=== PATIENT | female | born 1965 | race Caucasian/White ===

== ENCOUNTER 2017-04-15 15:59 | Inpatient (IN) | payer OTHER ==
[~2017-04-15] VITALS: Ht 165.1 cm; Wt 90.9 kg
[2017-04-15 16:55] VITALS: BP 141/79; PULSE 97; TEMP 38.2; O2SAT 96
[2017-04-15] MEDS ORDERED: IBUPROFEN 600 MG TAB PO PRN (17:45)
[2017-04-15] MEDS ORDERED: POLYETHYLENE (MIRALAX) 17 GM PACK PO PRN (17:45)
[2017-04-15] MEDS ORDERED: ALBUT/IPRATROP 3MG/0.5MG NEB 3 ML VIAL INH PRN ×2 (17:45→18:15)
[2017-04-15] MEDS ORDERED: ALUMINUM/MAGNESIUM/SIMETH (MAALOX MAX) 30 ML UDC PO PRN (17:45)
[2017-04-15] MEDS ORDERED: MAGNESIUM HYDROXIDE SUSP 30 ML UDC PO PRN (17:45)
[2017-04-15] MEDS ORDERED: LEVOFLOXACIN / D5W 750 MG in PREMIXED IN D5W 150 ML IV ONE (18:00)
[2017-04-15] MEDS ORDERED: LORAZEPAM 0.5 MG TAB PO PRN (18:00)
--- NOTE | 2017-04-15 18:02 | History and Physical ---
History & Physical Date & Time of Service: Apr 15, 2017 at 17:40 Chief Complaint: Pneumonia Primary Care Physician: Joanie Tubbs M.D. History of Present Illness Source: patient, family ( at bedside), clinic records, hospital records Patient is a pleasant 51 y/o female, with PMHx of chronic headaches, anxiety, and ventricular septal defect, who was a direct admission from Dr. Contreras's office due to left upper lobe PNA. Patient presented to Dr. Contreras's office due to fever/chills, body aches, cough, and generalized fatigue since 04/10. She tried to get in with her PCP's office, but she could not get answer; her sees Dr. Contreras so she called him for an acute visit. CXR reports PNA and she was instructed to come here. She has been taking Tylenol and Ibuprofen with help in body aches and fever/chills. She has not been on any antibiotics recently. She denies h/o PNA. Patient denies any lightheadedness, dizziness, vision changes, CP, palpitations, edema, wheezing, abdominal pain, nausea, vomiting, diarrhea, urinary symptoms, melena, numbness/tingling, weakness, anxiety/depression, active bleeding, or new skin discoloration/changes. Past Medical/Surgical History Medical Problems: Anxiety Chronic headache Hearing loss in right ear Ventricular septal defect Surgical History: Lap cholecystectomy Family History Diabetes mellitus FH: coronary artery disease FH: thyroid disease Social History Smoking Status: Never Smoker Drug Use: none Marital Status: Housing status: lives with family Occupational Status: employed Multi-Drug Resistant Organisms History of MDRO: No Allergies Coded Allergies: Acetaminophen (Verified Adverse Reaction, Unknown, Nausea/Vomiting, ) Doxycycline (Verified Adverse Reaction, Unknown, Nause/Vomiting, 05/29/15) Hydrocodone (Verified Adverse Reaction, Unknown, Nausea/Vomiting, 05/29/15 ) Home Medications No Active Prescriptions or Reported Meds Physical Exam Vital Signs Date Time Temp Pulse Resp B/P (MAP) Pulse Ox O2 Delivery O2 Flow Rate FiO2 04/15/17 16:55 38.2 97 16 141/79 (99) 96 Room Air General Appearance: WD/WN, no apparent distress Head: normocephalic, atraumatic Eyes: normal inspection, PERRL ENT: hearing grossly normal Neck: supple Respiratory/Chest: lungs clear, no respiratory distress, no accessory muscle use Cardiovascular: regular rate, rhythm Abdomen/GI: normal bowel sounds, non tender, soft Back: normal inspection Extremities/Musculoskelatal: no calf tenderness, no pedal edema Neurologic/Psych: alert, normal mood/affect, oriented x 3 Skin: normal color, warm/dry, no rash Diagnostics Diagnostic Radiology CHEST 2 VIEWS ROUTINE CLINICAL HISTORY: Cough. Shortness of breath. COMPARISON STUDY: No previous studies for comparison. FINDINGS: Note is made of a 6.7 cm left suprahilar opacity suggestive of left upper lobe pneumonia. There is no cavitation. No pneumothorax or pleural effusion is present. Right lung is clear. Cardiomediastinal silhouette is normal. IMPRESSION: 6.7 cm left suprahilar airspace opacity suggestive of left upper lobe pneumonia. Radiographic follow-up to ensure resolution is recommended. Electronically signed by: Andrea Castro M.D. 04/15/2017 2:28 PM Dictated Date/Time: 04/15/2017 2:27 PM The status of this report is Signed. Draft = Not yet reviewed or approved by Radiologist. Signed = Reviewed and approved by Radiologist Impression Assessment and Plan Patient is a pleasant 51 y/o female, with PMHx of chronic headaches, anxiety, and ventricular septal defect, who was a direct admission from Dr. Contreras's office due to left upper lobe PNA. Left upper lobe PNA: - Admit to med/surg - O2 protocol - IV Levaquin 750 mg daily - IV NS @ 125 ml/hr - DuoNeb QID and PRN SOB/whezzing - IV Solu Medrol 60 mg w/ tapering dose - Ibuprofen and Tylenol PRN pain/fevers - BCx, UA, sputum culture, and MRSA nasal swab pending - CBC and PRP pending - Chest CT per Dr. Contreras's recommendations to r/o postobstructive PNA - Dr. Contreras consulted, appreciate recommendations Anxiety: Continue Ativan 0.5 mg PRN GI prophylaxis: Protonic daily DVT prophylaxis: Lovenox SQ daily Code Status: LEVEL I, FULL Dispo: From home, lives w/ - no discharge needs anticipated Resident Physician Supervision Note: I was present with during the history and exam. I discussed the case with the resident and agree with the findings and plan as documented in the note. Any exceptions or clarifications are listed here: 51 y/o F who denies any past medical Hx aside form cholecystitis - presented to her MDs office for SOB, cough, fever - diagnosed with dense LUCILLE infiltrate. She was sent in for imaging and IV antibiotics as there was concern for sepsis. OE AAO x 3 S1 , 2 R CTAB NT, ND No CCE P: Pt placed on Levaquin, nebs, IVF We will obtain a CT to r/o a post-obstructive process She is not currently requiring 02 Blood and sputum cultures present Above discussed with pt, PA, PCP/Porcelain Turner from office Documented By: Jaleel Singletary Level of Care Med/Surg Resuscitation Status FULL RESUSCITATION VTE Prophylaxis VTE Risk Assessment Done? Y/N: Yes Risk Level: Low Given or contraindicated: Enoxaparin (Lovenox)SQ, T.E.D. Stockings, SCD's
[2017-04-15 18:17] VITALS: BP 141/79; PULSE 97; TEMP 38.2; O2SAT 96; Ht 165.1 cm; Wt 90.9 kg
[2017-04-15] MEDS ORDERED: LORA-741 PO (18:40)
[2017-04-15] MEDS: SODIUM CHLORIDE 0.9% 1000ML 1,000 ML IV SCH (18:44)
[2017-04-15] MEDS: METHYLPREDNISOLONE IV 60 MG in SYRINGE 0 ML IV SCH (18:45)
[2017-04-15 18:47] LABS: HEMATOCRIT 43.2 % (37-47); MEAN CELL VOLUME 86.1 fL (80-100); MEAN CORPUSCULAR HEMOGLOBIN 30.3 pg (25-34); MEAN CORPUSCULAR HGB CONC 35.2 g/dl (32-36); PLATELET COUNT 211 K/uL (130-400); RED BLOOD COUNT 5.02 M/uL (4.2-5.4); WHITE BLOOD COUNT 3.26 K/uL (4.8-10.8)
[2017-04-15 18:55] LABS: PROTHROMBIN TIME (PATIENT) 10.8 SECONDS (9.0-12.0)
[2017-04-15] MEDS: ALBUT/IPRATROP 3MG/0.5MG NEB 3 ML VIAL INH SCH (19:12)
[2017-04-15 19:14] VITALS: PULSE 87; O2SAT 96
[2017-04-15 19:14] LABS: BUN/CREATININE RATIO 11.2 (10-20); CALCIUM 8.9 mg/dl (8.5-10.1); CREATININE 0.87 mg/dl (0.60-1.20); POTASSIUM 3.9 mmol/L (3.5-5.1)
[2017-04-15 19:16] VITALS: TEMP 36.7
[2017-04-15] MEDS ORDERED: OPTIRAY 320 IV PRN (20:00)
[2017-04-15] MEDS: ACETAMINOPHEN 325 MG TAB PO PRN (20:10)
[2017-04-15] MEDS: ONDANSETRON INJ 2 MG/ML 2 ML VIAL IV PRN (20:13)
--- NOTE | 2017-04-15 21:00 | DIAGNOSTIC IMAGING REPORT ---
(CHEST) THORAX WITH CT DOSE: 250.52 mGy.cm HISTORY: Pneumonia PNA, r/o postobstructive PNA TECHNIQUE: Multiaxial CT images of the chest were performed following the intravenous administration of contrast. A dose lowering technique was utilized adhering to the principles of ALARA. COMPARISON: None. FINDINGS: Left perihilar infiltrate. This primarily is in a left upper lobe distribution no significant mediastinal or hilar adenopathy. Lungs otherwise are clear. Thoracic aorta is normal in course and caliber. Small amount of debris within the left upper lobe bronchus. Limited evaluation of the upper abdomen demonstrates fatty infiltration of liver, prior cholecystectomy, as well as a small hepatic cyst. IMPRESSION: 1. Left perihilar and left upper lobe infiltrate. 2. No significant hilar or mediastinal adenopathy. 3. Lungs otherwise appear clear. 4. Mild fatty infiltration of liver. The above report was generated using voice recognition software. It may contain grammatical, syntax or spelling errors. Electronically signed by: Atif Plata M.D. 04/15/2017 8:59 PM Dictated Date/Time: 04/15/2017 8:56 PM
[2017-04-15] MEDS: ENOXAPARIN 40 MG/0.4 ML SYR SQ SCH (21:07)
[2017-04-15 21:49] LABS: URINE APPEARANCE CLEAR (CLEAR); URINE BILIRUBIN NEG (NEG); URINE COLOR YELLOW; URINE NITRITE NEG (NEG); UROBILINOGEN NEG (NEG); ZZUR CULT IF INDIC CLEAN CATCH NO
[2017-04-15 21:55] LABS: MANUAL MICROSCOPIC REQUIRED? NO; REVIEW REQ? NO
[2017-04-15 23:52] VITALS: BP 107/65; PULSE 72; TEMP 36.8; O2SAT 95
[2017-04-16] VITALS (7 sets, daily range): BP systolic 117–139; BP diastolic 68–75; PULSE 69–84; TEMP 36.9–37; O2SAT 93–96
[2017-04-16] MEDS: SODIUM CHLORIDE 0.9% 1000ML 1,000 ML IV SCH ×3 (04:05→17:03)
[2017-04-16] MEDS: ONDANSETRON INJ 2 MG/ML 2 ML VIAL IV PRN (04:08)
[2017-04-16 06:10] LABS: HEMATOCRIT 40.1 % (37-47); MEAN CELL VOLUME 87.2 fL (80-100); MEAN CORPUSCULAR HEMOGLOBIN 29.6 pg (25-34); MEAN CORPUSCULAR HGB CONC 33.9 g/dl (32-36); MEAN PLATELET VOLUME 9.6 fL (7.4-10.4); PLATELET COUNT 206 K/uL (130-400); WHITE BLOOD COUNT 3.04 K/uL (4.8-10.8)
[2017-04-16 06:41] LABS: BUN/CREATININE RATIO 10.5 (10-20); CALCIUM 8.6 mg/dl (8.5-10.1); CREATININE 0.77 mg/dl (0.60-1.20); POTASSIUM 4.3 mmol/L (3.5-5.1)
[2017-04-16] MEDS: ALBUT/IPRATROP 3MG/0.5MG NEB 3 ML VIAL INH SCH ×4 (07:07→20:25)
[2017-04-16] MEDS: METHYLPREDNISOLONE IV 60 MG in SYRINGE 0 ML IV SCH (08:32)
[2017-04-16] MEDS: PANTOprazole SOD 40 MG TAB PO SCH (08:32)
--- NOTE | 2017-04-16 11:50 | Progress Note ---
Subjective Date of Service: Apr 16, 2017. Subjective Pt evaluation today including: conversation w/ patient, physical exam, chart review, lab review, review of studies, review of inpatient medication list Pt reports feeling weak still No productive cough Resting comfortably in bed No acute events overnight Review of Systems Constitutional: + weakness, + fatigue, No fever, No chills, No sweats ENT: No hearing loss, No unusual epistaxis, No nasal symptoms, No sore throat Respiratory: No cough, No sputum, No wheezing, No shortness of breath, No dyspnea on exertion Cardiac: No chest pain, No orthopnea, No PND, No edema, No claudication Abdomen: No pain, No nausea, No vomiting, No diarrhea, No constipation Musculoskeletal: No joint pain, No muscle pain, No swelling, No calf pain Female : No dysuria, No urinary frequency, No hematuria, No abnormal vaginal bleeding Neurologic: No memory loss, No paralysis, No weakness, No numbness/tingling Psychiatric: No depression symptoms, No anhedonism, No anxiety, No insomnia Endo: No fatigue, No excessive thirst Skin: No rash, No itch Objective Vital Signs Date Time Temp Pulse Resp B/P (MAP) Pulse Ox O2 Delivery O2 Flow Rate FiO2 04/16/17 11:11 74 18 96 Room Air 04/16/17 08:00 Room Air 04/16/17 07:19 37.0 69 16 117/68 (84) 96 Room Air 04/16/17 07:08 74 18 95 Room Air 04/16/17 01:50 Room Air 04/15/17 23:52 36.8 72 20 107/65 (79) 95 Room Air 04/15/17 22:00 Room Air 04/15/17 19:16 36.7 04/15/17 19:14 87 18 96 Room Air 04/15/17 18:17 38.2 97 16 141/79 96 Room Air 04/15/17 16:55 38.2 97 16 141/79 (99) 96 Room Air Physical Exam General Appearance: WD/WN, no apparent distress ENT: normal ENT inspection, hearing grossly normal, TMs normal, pharynx normal Neck: supple, no adenopathy, thyroid normal, no JVD Respiratory/Chest: chest non-tender, no respiratory distress, no accessory muscle use, + decreased breath sounds Cardiovascular: no edema, no gallop, no JVD, no murmur Abdomen: normal bowel sounds, non tender, soft, no organomegaly Extremities: normal range of motion, non-tender, normal inspection, no pedal edema Neurologic/Psychiatric: no motor/sensory deficits, alert, normal mood/affect, oriented x 3 Skin: normal color, warm/dry, no rash Lymphatic: no adenopathy Laboratory Results Last 24 Hours Test 04/15/17 18:31 04/15/17 18:34 04/15/17 21:05 04/16/17 05:52 White Blood Count 3.26 K/uL 3.04 K/uL Red Blood Count 5.02 M/uL 4.60 M/uL Hemoglobin 15.2 g/dL 13.6 g/dL Hematocrit 43.2 % 40.1 % Mean Corpuscular Volume 86.1 fL 87.2 fL Mean Corpuscular Hemoglobin 30.3 pg 29.6 pg Mean Corpuscular Hemoglobin Concent 35.2 g/dl 33.9 g/dl RDW Standard Deviation 41.5 fL 42.4 fL RDW Coefficient of Variation 13.2 % 13.3 % Platelet Count 211 K/uL 206 K/uL Mean Platelet Volume 10.0 fL 9.6 fL Prothrombin Time 10.8 SECONDS Prothromb Time International Ratio 1.0 Sodium Level 134 mmol/L 140 mmol/L Potassium Level 3.9 mmol/L 4.3 mmol/L Chloride Level 101 mmol/L 107 mmol/L Carbon Dioxide Level 26 mmol/L 28 mmol/L Anion Gap 7.0 mmol/L 5.0 mmol/L Blood Urea Nitrogen 10 mg/dl 8 mg/dl Creatinine 0.87 mg/dl 0.77 mg/dl Est Creatinine Clear Calc Drug Dose 86.2 ml/min 97.4 ml/min Estimated GFR () 90.0 104.3 Estimated GFR (Non- 77.7 90.0 BUN/Creatinine Ratio 11.2 10.5 Random Glucose 89 mg/dl 152 mg/dl Calcium Level 8.9 mg/dl 8.6 mg/dl Hepatitis C Antibody Screen NEG Urine Color YELLOW Urine Appearance CLEAR Urine pH 6.0 Urine Specific [place] 1.020 Urine Protein TRACE Urine Glucose (UA) NEG Urine Ketones 2+ Urine Occult Blood NEG Urine Nitrite NEG Urine Bilirubin NEG Urine Urobilinogen NEG Urine Leukocyte Esterase NEG Urine WBC (Auto) 1-5 /hpf Urine RBC (Auto) 0-4 /hpf Urine Hyaline Casts (Auto) 1-5 /lpf Urine Epithelial Cells (Auto) 10-20 /lpf Urine Bacteria (Auto) NEG Test 04/16/17 09:40 04/16/17 11:45 Influenza Type A Antigen Neg for Influ A Influenza Type B Antigen Neg for Influ B Assessment and Plan Patient is a pleasant 51 y/o female, with PMHx of chronic headaches, anxiety, and ventricular septal defect, who was a direct admission from Dr. Contreras's office due to left upper lobe PNA. Left upper lobe PNA: - Admit to med/surg, no leukocytosis or fevers - O2 protocol, no hypoxia noted on RA - Cont IV Levaquin 750 mg daily - IV NS @ 125 ml/hr - DuoNeb QID and PRN SOB/whezzing - IV Solu Medrol 60 mg now tapered to prednisone 40 mg PO daily - Ibuprofen and Tylenol PRN pain/fevers - BCx, UA, sputum culture, and MRSA nasal swab pending - CBC and PRP pending, flu neg - Chest CT confirmed CXR findings - Pulm consulted, appreciate recs, likely DC in AM Anxiety: Continue Ativan 0.5 mg PRN GI prophylaxis: Protonic daily DVT prophylaxis: Lovenox SQ daily Code Status: LEVEL I, FULL
--- NOTE | 2017-04-16 14:56 | PULMONARY CONSULTATION ---
DATE OF CONSULTATION: 04/16/2017 DATE OF CONSULTATION: 04/16/2017 TIME: 11:45 a.m. REPORT OF CONSULTATION: The patient was seen in room 407, bed 1. She is a 51-year-old female who became ill approximately 04/09/2017. She started off feeling like she was cold. Subsequently, she developed chills and rigors on the . Soon thereafter, her temperature at home went between 102 and 103 degrees. She felt diffusely achy. She states she had redness in her face and in her neck. On 04/12/2017, she developed shortness of breath. She had a dry cough. She had mild left anterior chest discomfort. She was definitely more short of breath than normal for her. She states she considered going to the ER. She did not feel well, but the [employer] game was on. Subsequently, a day or two later she was feeling worse. She called her family doctor, but apparently did not get a call back. Yesterday she came to the office and saw Dr. Contreras where he evaluated her and had her admitted. She still has not expectorated any sputum. The patient's son who is approximately age 18 was ill very recently with a respiratory infection. Subsequently, her got a similar infection. Then subsequently she became ill, but she got much sicker than her other family members. The patient has no prior history of pulmonary problems. She does describe being a little more short of breath than she had been over the past 1 year. She thinks that she does not have any real trouble on level ground. She would be able to walk a couple of miles. Her problem would only be up hills or up steps. Since she has been sick this time her appetite is significantly diminished. She has had some mild nausea. She has not had any vomiting. She was still a little nauseated since she came in and she states she has had 2 doses of Zofran. Today, she is overall feeling better. Her sense of wellbeing is better. She feels less weak. She ate a little bit, although not hungry. She does not seem to be short of breath, although she has not been exerting herself to any significant degree. There has been no hemoptysis at any time. PAST SURGICAL HISTORY: Cholecystectomy 1999. PAST MEDICAL HISTORY: VSD diagnosed many years ago. She states her last echo did not show the VSD. SOCIAL HISTORY: Tobacco never. ETOH -- occasional red wine. ALLERGIES: No known definite allergies. She does have vomiting when taking doxycycline. FAMILY HISTORY: Father , had COPD, coronary artery disease and CVA. Mother , had diabetes and renal insufficiency. One brother has hypertension. Sister had hypothyroidism. REVIEW OF SYSTEMS: Negative except for the above-mentioned complaints. MEDICATIONS AT HOME: None. PHYSICAL EXAMINATION: GENERAL: The patient is a 51-year-old female who was cooperative, alert and oriented. She was in no distress. VITAL SIGNS: Temperature is 37 degrees. HEAD, EYES, EARS, NOSE, AND THROAT: Pupils were reactive to light. Nares were clear. Mouth exam showed no erythema or exudate. NECK: Palpation of the neck reveals no lymph nodes or masses. CHEST: Normal expansion and development. Heart rate was 74 per minute. The rhythm was regular. Blood pressure 117/68. LUNGS: Lung cano were fairly clear bilaterally. No wheezes, rales or rhonchi were heard. Respiratory rate was 18 breaths per minute. Saturation was 96% on room air. ABDOMEN: Soft and nontender. Bowel sounds were normal. There was no tenderness to palpation. EXTREMITIES: Showed no cyanosis, clubbing or edema. IMAGING DATA: The patient's chest x-ray shows evidence of a prominent left upper lobe infiltrate. This is not well visualized on the lateral x-ray. There was no definite adenopathy. LABORATORY DATA: White count is low at 3.26 yesterday and 3.04 today. Hemoglobin is 13.6. Platelets are 206,000. INR was 1. Urinalysis showed 2+ ketones with 1-5 WBCs. Electrolytes show sodium 140, potassium 4.3, chloride 107, bicarb 28. BUN is 8 with a creatinine of 0.77. Flu test was negative. IMPRESSION: Left upper lobe pneumonia -- community acquired. COMMENTS AND RECOMMENDATIONS: The patient is much improved after approximately 16 hours of treatment. She feels definitively better. Her white count is low. We do not have any prior white counts for comparison. This could be compatible with a viral infection or even a mycoplasma infection. I cannot entirely exclude bacterial infection. She is not bringing up any sputum as noted. Clinically, she is much better on levofloxacin. She is getting some neb treatments and steroids as well. Hopefully she will be able to be discharged soon. I would decrease the steroid dose. Will check a mycoplasma titer. Ultimately, she will need a follow-up x-ray in a couple of weeks and follow up with Dr. Contreras. One must be certain that the infiltrate totally resolves. I agree with the other measures which are currently being done. Thank you for asking me to assist in her care.
[2017-04-16] MEDS ORDERED: LEVOFLOXACIN / D5W 750 MG in PREMIXED IN D5W 150 ML IV SCH (18:00)
[2017-04-16] MEDS: ENOXAPARIN 40 MG/0.4 ML SYR SQ SCH (19:31)
[2017-04-17 00:03] VITALS: BP 145/82; PULSE 76; TEMP 36.6; O2SAT 96
[2017-04-17] MEDS: SODIUM CHLORIDE 0.9% 1000ML 1,000 ML IV SCH (02:19)
[2017-04-17] MEDS: ACETAMINOPHEN 325 MG TAB PO PRN (02:19)
[2017-04-17 05:55] LABS: HEMATOCRIT 34.5 % (37-47); MEAN CELL VOLUME 87.6 fL (80-100); MEAN CORPUSCULAR HEMOGLOBIN 29.2 pg (25-34); MEAN CORPUSCULAR HGB CONC 33.3 g/dl (32-36); MEAN PLATELET VOLUME 9.7 fL (7.4-10.4); PLATELET COUNT 219 K/uL (130-400); RED BLOOD COUNT 3.94 M/uL (4.2-5.4)
[2017-04-17 06:31] LABS: CALCIUM 8.5 mg/dl (8.5-10.1); CREATININE 0.6 mg/dl (0.60-1.20)
[2017-04-17 07:12] VITALS: PULSE 72; O2SAT 97
[2017-04-17] MEDS: ALBUT/IPRATROP 3MG/0.5MG NEB 3 ML VIAL INH SCH ×2 (07:12→11:04)
[2017-04-17 07:17] VITALS: BP 112/75; PULSE 75; TEMP 36.5; O2SAT 96
[2017-04-17] MEDS: PANTOprazole SOD 40 MG TAB PO SCH (08:52)
[2017-04-17] MEDS ORDERED: LEVO750T23 PO (09:25)
[2017-04-17] MEDS ORDERED: METH4PAK PO (09:25)
--- NOTE | 2017-04-17 09:28 | Discharge Instructions ---
Discharge Instructions Date of Service Apr 17, 2017. Admission Reason for Admission: Pneumonia Discharge Discharge Diagnosis / Problem: Community acquired pneumonia Discharge Goals Goal(s): Decrease discomfort, Improve function, Increase independence, Improve disease control, Learn about illness, Diagnostic testing, Prevent Disease Progression Activity Recommendations Activity Limitations: resume your previous activity Exercise/Sports Limitations: as tolerated . Instructions / Follow-Up Instructions / Follow-Up Patient to be discharged home Please take antibiotic levaquin 750 mg tablet once a ay for 6 more days Please take steroid taper as directed Follow up with Dr Contreras in 1 week Follow up with Dr Tubbs in 1-2 weeks If worsening fevers, shortness of breath please report to ER Current Hospital Diet Patient's current hospital diet: Regular Diet Discharge Diet Recommended Diet: Regular Diet Pending Studies Studies pending at discharge: yes List of pending studies: mycoplasma and legionella serology Medical Emergencies . Who to Call and When: Medical Emergencies: If at any time you feel your situation is an emergency, please call 911 immediately. . Non-Emergent Contact Non-Emergency issues call your: Primary Care Provider Call Non-Emergent contact if: you have a fever, your pain is worsening . . "Provider Documentation" section prepared by Rodger Sosa. . VTE Core Measure Inpt VTE Proph given/why not?: Enoxaparin (Lovenox)NARDA, Tr Mcghee, SCD's
[2017-04-17 10:27] VITALS: BP 112/75; PULSE 75; TEMP 36.5; O2SAT 96
--- NOTE | 2017-04-17 10:53 | Discharge Summary ---
Discharge Summary Date of Service Apr 17, 2017. Discharge Summary Admission Date: Apr 15, 2017 at 16:19 Discharge Date: Apr 17, 2017 Discharge Disposition: Home Principal Diagnosis: Community acquired pneumonia Consultations: Pulmonary Medication Reconciliation New Medications: Levofloxacin (Levaquin) 750 Mg Tab 1 TAB PO DAILY for 6 Days, #6 TAB Methylprednisolone (Medrol Dosepak) 4 Mg Fernando 0 PO DAILY, #1 PKT Continued Medications: Lorazepam (Ativan) 0.5 Mg Tab 0.5 MG PO Q6H, TAB Discharge Exam Review of Systems: Constitutional: No fever, No chills, No sweats ENT: No hearing loss, No unusual epistaxis, No nasal symptoms, No sore throat Respiratory: No cough, No sputum, No wheezing, No shortness of breath, No dyspnea on exertion Cardiovascular: No chest pain, No orthopnea, No PND, No edema Abdomen: No pain, No nausea, No vomiting, No diarrhea Musculoskeletal: No joint pain, No muscle pain, No swelling, No calf pain Genitourinary - Female: No dysuria, No urinary frequency, No urinary urgency , No urinary retention Neurologic: No memory loss, No paralysis, No weakness, No numbness/tingling Psychiatric: No depression symptoms, No anhedonism, No anxiety, No insomnia Endocrine: No fatigue, No excessive thirst Integumentary: No rash, No itch Physical Exam: General Appearance: WD/WN, no apparent distress Eyes: normal inspection, PERRL, EOMI, sclerae normal Neck: supple, no adenopathy, thyroid normal, no JVD Respiratory/Chest: chest non-tender, lungs clear, normal breath sounds, no respiratory distress Cardiovascular: regular rate, rhythm, no edema, no gallop, no JVD Abdomen / GI: normal bowel sounds, non tender, soft, no organomegaly Extremities: normal inspection, no calf tenderness, normal capillary refill , no pedal edema Neurologic/Psychiatric: substance abuse therapist II-XII nml as tested, alert, normal mood/affect , oriented x 3 Skin: normal color, warm/dry, no rash Lymphatic: no adenopathy Hospital Course Patient is a pleasant 51 y/o female, with PMHx of chronic headaches, anxiety, and ventricular septal defect, who was a direct admission from Dr. Contreras's office due to left upper lobe PNA. Left upper lobe PNA: - Admit to med/surg, no leukocytosis or fevers - O2 protocol, no hypoxia noted on RA - Cont IV Levaquin 750 mg daily, converted to levaquin 750 mg PO for 6 days on discharge - IV NS @ 125 ml/hr - DuoNeb QID and PRN SOB/whezzing - IV Solu Medrol 60 mg now tapered to prednisone 40 mg PO daily, medrol dose fernando on DC - Ibuprofen and Tylenol PRN pain/fevers - Chest CT confirmed CXR findings - Pulm consulted, appreciate recs, f/u with Dr Contreras in 1 week, will likely need repeat CXR, mycoplasma and legionella pending Anxiety: Continue Ativan 0.5 mg PRN GI prophylaxis: Protonic daily DVT prophylaxis: Lovenox SQ daily Code Status: LEVEL I, FULL Total Time Spent: Greater than 30 minutes This includes examination of the patient, discharge planning, medication reconciliation, and communication with other providers. Discharge Instructions Please refer to the electronic Patient Visit Report (Discharge Instructions) for additional information. Additional Copies To Joanie Tubbs M.D.
--- NOTE | 2017-04-17 11:51 | PROGRESS NOTE ---
DATE: 04/17/2017 DATE: 04/17/2017 PROBLEM LIST: Includes left upper lobe pneumonia, community acquired . SUBJECTIVE: The patient reports that she is feeling well today. Her cough is improved. Her breathing has improved. She is on room air without difficulty. She is still having a little bit of cough but there is no significant production to it. She is not having any chest discomfort. No chest heaviness or tightness. No chest pain or painful respirations. She reports that overall she feels much better. No fevers, no chills, no sweats, no GI symptoms. No cardiac symptoms. Overall, the patient is feeling pretty much back to her normal level. OBJECTIVE: GENERAL: The patient is a 51-year-old female, sitting at bedside in no acute distress. She is alert and oriented x3. Mood is good. Affect is good. VITAL SIGNS: Temp 36.5, pulse 75, respirations 16, blood pressure is 112/75, pulse ox 96% on 4 liters. HEAD, EYES, EARS, NOSE, AND THROAT: Normocephalic, atraumatic. Pupils equal, round and reactive to light and accommodation. Extraocular movements are intact. [place] moist gingival and buccal mucosa. NECK: Supple. No mass. No adenopathy. No bruit. CHEST: Breath sounds overall are fairly good. I do not appreciate any wheeze. No rale or rhonchi at this time. CARDIOVASCULAR: Regular rate and rhythm. There are no murmurs, gallops or rubs. ABDOMEN: Soft, nontender. No guarding, rigidity or organomegaly. EXTREMITIES: No erythema or edema. LABORATORY DATA: Shows a white count of 7.5, H&H 11.5 and 34.5, platelet count of 219,000. Blood cultures negative today. No new imaging. IMPRESSION: The patient is a 51-year-old female who was admitted with a left upper lobe community-acquired pneumonia. At this time, she is significantly improved. Levofloxacin seems to be working well. At this point, the patient seems to be stable enough for discharge today. She will need to complete a 7-day course of levofloxacin and a slow steroid taper. She will be followed up in the office in approximately 1 week for reevaluation. She will need a chest x-ray as an outpatient. The patient was given these instructions and voiced understanding. KHOI
[2017-04-17 12:12] LABS: LEGIONELLA ANTIGEN NOT DETECTED (NOT DETECTED)
== END 2017-04-17 11:59 | disposition home or self-care (01) | DRG 194 ==
LOC: C.4E 16:19
PROVIDERS: ADMIT Internal Medicine; ATTEND Hospitalist
DX: J18.9 Pneumonia, unspecified organism (principal); Q21.0 Ventricular septal defect; F41.9 Anxiety disorder, unspecified; Z83.3 Family history of diabetes mellitus